=== PATIENT | female | born 1995 | race Two or more races ===

== ENCOUNTER 2021-07-30 03:28 | Inpatient (IN) | payer OTHER, SELFPAY ==
[2021-07-30] VITALS (11 sets, daily range): BP systolic 101–122; BP diastolic 67–74; PULSE 65–66; RESP 16–20; TEMP 36.8; O2SAT 97–98; BMI 20.5
[2021-07-30] MEDS: Haloperidol Lactate 5 MG/ML VIAL IM (05:45)
[2021-07-30] MEDS: LORazepam 2 MG/ML VIAL IM (05:45)
[2021-07-30] MEDS: diphenhydrAMINE HCL 50 MG/ML VIAL IM (05:45)
--- NOTE | 2021-07-30 06:12 | PC.NURSE ---
Patient observed wit disorganized thought process, loud, disruptive, psychotically agitated, attempted to exit unit two times, non-re--, provider notified/ordered Ativan 2 mg IM, Haldol 5 mg IM, and Benedryl 50 mg IM, administered as ordered at 0545, security support was used, patient is currently resting quietly in her bed, patient is 1:1 for safety, will continue to monitor.
[2021-07-30 06:29] LABS: COVID-19 Test Negative (Negative)
--- NOTE | 2021-07-30 08:36 | ED_ITS ---
HPI - General Adult General Chief complaint: General Medical Stated complaint: unable to sleep Time Seen by Provider: 07/30/21 05:41 Source: patient Mode of arrival: ambulatory Limitations: altered mental status (Violeta) History of Present Illness HPI narrative: 26-year-old female who was brought to the emergency department for evaluation of violeta. The patient states she has not been able to sleep in 3-4 days . The patient was manic and had very pressured speech. Prior to my evaluation, the patient began yelling at staff and became very demanding. It was clear that she was manic and she was brought to the psychiatric pod. She was not able to be redirected and calmed down. The patient was therefore given Haldol 5 mg IM, Ativan 2 mg IM and Benadryl 50 mg IM. Related Data Home Medications Medication Instructions Recorded Confirmed alprazolam 0.25 mg tablet 1 tab PO DAILY PRN 07/30/21 07/30/21 buspirone 10 mg tablet 1 tab PO Q12H 07/30/21 07/30/21 sertraline 50 mg tablet 1 tab PO DAILY 07/30/21 07/30/21 zolpidem 10 mg tablet 1 tab PO BEDTIME PRN 07/30/21 07/30/21 Allergies Allergy/AdvReac Type Severity Reaction Status Date / Time No Known Allergies Allergy Verified 07/30/21 05:40 Review of Systems Verdana 4l Review of Systems: Yes Unobtainable due to mental status Verdana 4d PMFSH Past Medical History [facility] Narrative: Unobtainable due to violeta Social History Social History Alcohol intake: never Patient Tobacco Use Status: Never used Tobacco Use of substances other than those prescribed or required for medical reasons: No Advance Directives: No Advance Directives Information Provided: No Patient : No Physical Exam Verdana 4l Vital Signs: Verdana 4d Verdana 4d Vital Signs: Verdana 4d Verdana 4Bd Last Vital Signs Verdana 4d Automation Controls Specialist New 4d Automation Controls Specialist New 4d Temp 98.3 F 07/30/21 03:35 Automation Controls Specialist New 4d Pulse 65 07/30/21 04:18 Automation Controls Specialist New 4d Resp 16 07/30/21 07:35 BP 101/67 07/30/21 04:27 Pulse Ox 98 07/30/21 04:18 BMI result Body Mass Index 20.5 Const: Other: Patient is extremely manic, she is not redirectable, she is very agitated, she was talking a loud voice and would not stay in her room. Orientation/consciousness: oriented to person HENMT: Head: Yes normal to inspection, Yes normocephalic and Yes atraumatic Ears: external ears normal General nose exam: Normal external nose present Face and sinus: Yes normal facial exam Mouth: Normal oral and palatal mucosa present Throat: Yes posterior oropharynx normal Eyes: General: appearance normal, both eyes and all related structures Pupils: Equal, round and reactive pupils present Neck: Neck: Yes normal visual inspection, Yes no lymphadenopathy, Yes trachea midline and Yes supple Chest: Chest palpation & inspection: normal inspection of the chest and normal palpation of entire chest wall Resp: Effort & Inspection: normal respiratory effort and able to speak in complete sentences Auscultation: clear to auscultation bilaterally Cardio: Rate: regular rate Rhythm: regular rhythm Heart sounds: S1 normal heart sound present, S2 normal heart sound present and no murmurs GI: Inspection: Yes normal to inspection Palpation (GI): Soft to palpation, nontender and no guarding Auscultation: normal bowel sounds : General: Yes no CVA tenderness Back/Spine/Pelvis: Back: no CVA tenderness Skin: General skin exam: no rashes or lesions noted Neuro: General: oriented to person Cranial nerves: Yes CN's II-XII intact bilaterally and Yes Equal, round and reactive pupils present Motor exam (neuro): 5/5 motor strength present throughout Extrem: General: Yes normal to inspection Psych: Appearance: grossly normal Speech and movement: Pressured speech present Affect: Other affect and mood findings present (Manic) Thought content: Normal thought content present Course Course Course Narrative: 26-year-old female who presents emergency department for evaluation insomnia with unable to sleep for 3-4 days, the patient was manic and needed to be treated with Haldol 5 mg IM, Ativan 2 mg IM and Benadryl 50 mg IM. The patient had a good response these medications and is now resting comfortably. I did order Haldol 5 mg every 6 hours as needed for agitation and Ativan 2 mg every 6 hours as needed for agitation or anxiety. Patient's medications were reconciled in ordered. Did order laboratory evaluation to include CBC, CMP, urine drug screen urinalysis, urine test, TSH, COVID-19 test. 0845: Physician observation started at 0845. Patient placed in physician observation because the patient needed more time for medication to work and to see and be evaluated for the need for psych admission. At the time observation was started the patient's vitals were stable, patient is sleeping, lungs clear to auscultation heart regular rate rhythm, abdomen soft and nontender neurologic exam is nonfocal. Medical Decision Making Lab Data Labs: Lab Results 07/30/21 Range/Units 06:07 COVID-19 (NARCISA) Negative (Negative) COVID-19 Clin Com See Note Discharge Plan Discharge Clinical Impression: Violeta, Insomnia Patient Disposition: Still a Patient Prescriptions: No Action alprazolam 0.25 mg tablet 1 tab PO DAILY PRN (Reason: Agitation) 0RF buspirone 10 mg tablet 1 tab PO Q12H 0RF zolpidem 10 mg tablet 1 tab PO BEDTIME PRN (Reason: Insomnia) 0RF sertraline 50 mg tablet 1 tab PO DAILY 0RF
--- NOTE | 2021-07-30 13:06 | PC.NURSE ---
Patient resting comfortably in bed no s/s of pain or distress. Will continue to monitor.
[2021-07-30 16:39] LABS: MANUAL DIFF FLAG NO
[2021-07-30 16:40] LABS: Basophils Percent Auto 0.5 % (0-2); Eosinophils Absolute Auto 0.1 X10*3/uL (0.0-0.4); Eosinophils Percent Auto 1.2 % (0-4); Hematocrit 33.4 % (37.0-47.0); Hemoglobin 11.5 g/dl (12.0-16.0); Imm Gran Abs Auto 0.01 X10*3/uL (0.00-0.03); Imm Gran Pct Auto 0.2 % (0.0-0.4); Lymphocytes Percent Auto 34.3 % (20-40); Mean Corpuscular HGB Conc 34.4 g/dl (31.0-35.0); Mean Corpuscular Hemoglobin 28.1 pg (27.0-33.0); Mean Corpuscular Volume 81.7 fL (80.0-98.0); Mean Platelet Volume 10.6 fL (9.4-12.3); Monocytes Absolute Auto 0.5 X10*3/uL (0.1-1.2); Monocytes Percent Auto 9.1 % (2-11); Neutrophils Absolute Auto 3.3 x10*3/uL (2.0-8.3); Neutrophils Percent Auto 54.7 % (45-73); Platelet Count 316 X10*3/uL (160-400); Red Blood Count 4.09 X10*6/uL (4.20-5.50); Red Cell Distribution Width 14.5 % (11.0-16.0)
[2021-07-30 17:01] LABS: Alanine Aminotransferase 13 U/L (0-31); Alkaline Phosphatase 53 U/L (39-117); Anion Gap 12 (12-20); Aspartate Amino Transferase 14 U/L (5-31); Bilirubin Total 0.7 mg/dL (0.0-1.0); Blood Urea Nitrogen 7 mg/dL (9-16); Calcium 9.2 mg/dL (8.4-10.2); Carbon Dioxide 24 mmol/L (22-29); Chloride 108 mmol/L (96-108); Creatinine Clr Calc Pharmacy 87.7; Estimated Glomerular Filt Rate > 60; Glucose Random 90 mg/dL (60-115); Lipase 14 U/L (8-78); Potassium 3.5 mmol/L (3.3-5.1); Sodium 140 mmol/L (135-145); Total Protein 6.6 g/dL (6.5-8.0)
[2021-07-30 17:09] LABS: Ethanol < 10 mg/dL
[2021-07-30 17:20] LABS: TSH reflex Free T4 1.74 uIU/mL (0.32-4.0)
--- NOTE | 2021-07-30 18:02 | PC.NURSE ---
Care team in to assess patient at this time.
--- NOTE | 2021-07-30 19:40 | PC.NURSE ---
PT woke up and came out of room to use the bathroom. PT was calm and cooperative when speaking to me. PT stated that she really wants to see her and children. I explained to the PT that the visitor policy has recently changed to one visitor per PT but we are not allowing visitors after 1999 in order for patients to rest. PT was agreeable to rules and excited about seeing her family in the morning. PT provided urine sample at staff's request.
[2021-07-30 19:47] LABS: Appearance Urine CLEAR; Color Urine YELLOW; Glucose Urine UA NEG (NEG); Leukocyte Esterase Urine TRACE (NEG); Nitrite Urine NEG (NEG); UACC Culture Trigger YES; Urine Blood NEG (NEG); Urine Ketones 5 MG/DL (NEG); Urine Protein NEG (NEG-TRACE)
[2021-07-30 19:51] LABS: UPreg QC Valid YES; Urine Pregnancy NEGATIVE (NEGATIVE)
[2021-07-30 19:53] LABS: Bacteria Urine 1+ /LPF; RBC Urine 0 /HPF (0); Squamous Epithelial Cell Urine 2+ /LPF
[2021-07-30 20:04] LABS: Barbiturates, Urine Not Detected (Not Detect); Benzodiazepines Screen Urine Not Detected (Not Detect); Cocaine Screen Urine Not Detected (Not Detect); Fentanyl, urine Not Detected (Not Detect); Opiate Screen Urine Not Detected (Not Detect); Phencyclidine Screen Urine Not Detected (Not Detect)
[2021-07-30] MEDS: busPIRone HCl 10 MG TABLET PO (20:06)
[2021-07-30 20:10] LABS: Amphetamine Screen Urine Not Detected (Not Detect); Cannabinoid Screen Urine POSITIVE (Not Detect)
[2021-07-31 01:28] VITALS: RESP 12
--- NOTE | 2021-07-31 04:46 | PC.NURSE ---
PT woke up and informed this RN that she is feeling really drowsy and depressed. PT stated, The medication (Buspar) is making me feel this way and I do not want to continue taking it.
[2021-07-31 07:44] VITALS: BP 111/65; PULSE 79; RESP 16; TEMP 37.1; O2SAT 99
[2021-07-31] MEDS: Sertraline HCL 50 MG TABLET PO (08:07)
[2021-07-31] MEDS: metroNIDAZOLE 500 MG TABLET PO ×2 (13:05→20:00)
--- NOTE | 2021-07-31 18:34 | PC.NURSE ---
Bag of snacks is now located behind nurses station. Comfort object: blanket was kept at bedside due to pt richard for safety and denying SI/HI/ Self harm tendencies.
[2021-07-31 19:46] VITALS: BP 114/61; PULSE 74; TEMP 36.8; O2SAT 100
[2021-07-31] MEDS: busPIRone HCl 10 MG TABLET PO (19:58)
[2021-07-31] MEDS: LORazepam 1 MG TABLET 2 MG PO (19:58)
[2021-07-31] MEDS: HaloperidoL 5 MG TABLET PO (19:59)
--- NOTE | 2021-08-01 05:07 | PC.NURSE ---
Patient slept through the night, out of room times one for bathroom use and back, no distress observed/reported, medication compliant, behavioral appropriate and cooperative, patient's disposition per care team is voluntary inpatient bed search, no update on bed search, VSS, will continue to monitor.
[2021-08-01 06:20] VITALS: BP 115/67; PULSE 94; RESP 17; TEMP 36.9; O2SAT 100
[2021-08-01] MEDS: metroNIDAZOLE 500 MG TABLET PO ×2 (07:52→21:16)
[2021-08-01] MEDS: Sertraline HCL 50 MG TABLET PO (07:52)
--- NOTE | 2021-08-01 08:15 | PC.NURSE ---
pt requested morning meds early, refused Buspar stated it makes her mind cloudy . pt pleasant, talked about her family with this travel writer. denies pain, accepted breakfast. no complaints. will continue to monitor.
--- NOTE | 2021-08-01 09:01 | PC.NURSE ---
pt's in to visit. brought book to study. security checked and cleared book. will continue to monitor.
--- NOTE | 2021-08-01 10:28 | PC.NURSE ---
Ghislaine meeting with pt at this time.
--- NOTE | 2021-08-01 12:40 | PC.NURSE ---
pt pending admission to M3, pt made aware by Ghislaine. will continue to monitor.
[2021-08-01 13:08] LABS: COVID-19 Test Negative (Negative); IDNOW Serial# 08D9AD1C
[2021-08-01 14:00] VITALS: BP 118/65; PULSE 87; RESP 18; O2SAT 99
[2021-08-01 18:38] VITALS: BP 109/55; PULSE 84; TEMP 37.2; O2SAT 99
[2021-08-01] MEDS: HaloperidoL 5 MG TABLET PO (21:16)
[2021-08-01] MEDS: LORazepam 1 MG TABLET 2 MG PO (21:32)
--- NOTE | 2021-08-01 22:50 | PC.ADMIT ---
Patient is a 26 year old female who presented to M3 from [facility] ED POD. Patient arrived to the unit in a wheelchair at 21:38. Patient signed into the unit on a CV and signed a 3 day notice shortly after arrival. Vital signs upon arrival were T: 98.2, RR: 15, HR: 68, BP: 117/63, O2: 100%. Patient was pleasant and cheerful during admission process. Patient was observed smiling and laughing through the meeting. Patient is alert and oriented x 4. Patient reported that prior to coming to the ED she had not slept in 5 days. So my called the ambulance and they brought me to [facility]. I did not like the way they were taking care of me there. My sister and her boyfriend brought me to [place]. When I got here I was already agitated and was just talking loudly. They gave me an injection in my thigh. That made me sleep for like 10 hours and I woke up feeling like myself again . In the ED patient received a B52 on 07/29/2021. Patient reported that about a month and a half ago experiencing sleeplessness for 5 days. Patient called her PCP and PCP gave patient zoloft, Xanax, Buspar, and Ambien. Patient reported i didn't like the way the Buspar made my brain fog, or how the Ambien made me forgetful . Patient denies anxiety and depression at this time. Patient denied SI/HI/AH/VH. Patient reported feeling safe on the unit. Patient stated some goals for discharge are to establish a psychiatrist and get the medications right . Patient stated appetite was poor priori to coming to ED, but is better since being in the hospital. Patient reported losing about 10 pounds from decreased appetite. Patient stated she would pick and feel full fast. Patient denies physical complaints at this time.
[2021-08-02 08:41] LABS: Cholesterol 122 mg/dL; HDL Cholesterol 48 mg/dL; LDL Cholesterol Calculated 66 mg/dl; Triglycerides 44 mg/dL
[2021-08-02 08:59] LABS: Estimated Average Glucose 88 mg/dL; Hemoglobin A1c % 4.7 %
[2021-08-02 09:28] VITALS: BP 120/67; PULSE 100; RESP 17; TEMP 36.8; O2SAT 100
[2021-08-02] MEDS: Sertraline HCL 50 MG TABLET PO (09:36)
[2021-08-02] MEDS: metroNIDAZOLE 500 MG TABLET PO ×2 (09:36→20:46)
--- NOTE | 2021-08-02 10:00 | P.HPPS_ITS ---
HPI Date of Service: 08/02/21 Chief Complaint: Bipolar Disorder, Violeta; Insomnia Sources of Information: patient interviewed, chart reviewed and crisis/core team assessment reviewed HPI Subjective Notes: 3 Day Narrative: Mrs. Douglass is a 26 year-old woman who initially presented to [facility] [place] due to complaints of not sleeping for several days, changes in mood. Pt apparently left [facility] [place] [place] AMA because she reported staff making racial comments. Pt was brought in by family to [facility] [place] ED on 07/30/2021. In the ED, pt presented as agitated, tried to elope twice from ED, requiring chemical restraint. In the ED, her utox was positive for THC. On the unit, pt presents as much calmer and organized. She reports that for the past 3-4 weeks she was not able to sleep but had significant amount of energy. She reports exercising excessively. She also reports feeling paranoid reporting that she thought someone was after her. She also reports thinking that God was going to come. She reports she has never had episode like this one. She denied VH/AH. She denies SI/HI. She reports hx of depression which was treated by PCP recently when she was started about 6 weeks ago on sertraline. She was also started on ambien and reports having difficulty remembering things with this medication. Past Psychiatric History: Inpatient: none prior Outpatient:none no prior medication trials No hx of suicide attempts. Medical Evaluation Reviewed: Yes CBC mostly unremarkable except for slightly low RBC, Hgb/Hct. CMP wnl. [facility] Family History: reports mother and brother with hx of increase energy/changes in mood thinks they have not properly been dx with psychiatric condition due to cultural resistance to mental health services. Social History: , has two children ages 2y/o and 6yo. currently working as enterprise resource analyst and going to graduate school for database analyst. Substance History: reports using THC for sleep last use more than 2 weeks. Trauma History: denies Diagnostics Vital Signs (24Hr): Vital Signs - 24 hr 08/01/21 18:38 08/02/21 09:28 Temperature 99 F 98.3 F Pulse Rate 84 100 Respiratory Rate 17 Blood Pressure 109/55 L 120/67 Pulse Oximetry 99 100 BMI result Body Mass Index 20.5 Labs Results: 07/30/21 16:33 07/30/21 16:33 Labs: Laboratory Results - last 48 hr 08/01/21 08/02/21 08/02/21 12:42 08:08 08:08 Estimat Average Glucose 88 Hemoglobin A1c % 4.7 Triglycerides 44 Cholesterol 122 LDL Cholesterol, Calc 66 HDL Cholesterol 48 COVID-19 (NARCISA) Negative COVID-19 Clin Com See Note Meds/Allergies Meds Home Medications Acetaminophen (Acetaminophen 325 Mg Tablet) 650 mg PO Q6H PRN PRN Reason: Headache/Pain Mild Scale (1-3) Al Hydroxide/Mg Hydroxide (Magnesium Hydrox/Alum Hydrox 30 Ml Oral.Susp) 30 ml PO Q6H PRN PRN Reason: Heartburn/Nausea Haloperidol (Haloperidol 5 Mg Tablet) 5 mg PO BEDTIME NOREEN Hydroxyzine HCl (Hydroxyzine Hcl 25 Mg Tablet) 25 mg PO BEDTIME PRN PRN Reason: Anxiety Lorazepam (Lorazepam 1 Mg Tablet) 1 mg PO BEDTIME NOREEN Magnesium Hydroxide (Milk Of Magnesia 30 Ml Oral.Susp) 30 ml PO DAILY PRN PRN Reason: Constipation Metronidazole (Metronidazole 500 Mg Tablet) 500 mg PO BID NOREEN Stop: 08/03/21 21:01 Last Admin: 08/02/21 09:36 Dose: 500 mg Documented by: Allergies Allergies Allergy/AdvReac Type Severity Reaction Status Date / Time No Known Allergies Allergy Unverified 08/01/21 07:26 [No Known Allergies*] Mental Status Exam Mental Status Exam Narrative: Appearance: casually groomed, good hygiene, in NAD Behavior: cooperative Speech: clear, normal rate/rhythm/volume, spontaneous TP: linear TC: no over delusional or psychosis noted. looking forward to be discharged soon and continue OP psych tx. Mood: okay Affect: congruent, non labile VH/AH: none SI: none HI: none Delusions: none Insight/judgment: fair x 2. Memory/cog: alert, oriented x 3. grossly intact to conversational testing. Assessment & Plan Assessment & Plan (1) Psychosis: Status: Acute Code(s): F29 - Unspecified psychosis not due to a substance or known physiological condition (2) Cannabis use disorder, mild, abuse: Status: Acute Code(s): F12.10 - Cannabis abuse, uncomplicated Plan Ms. Wong is a 26 year-old woman who was brought to [facility] [place] ED by family after pt had not slept for past 2-3 weeks, increased energy, excessively exercising, paranoid ideas that she was being followed and that God was coming soon. Pt received haldol while in ED with good effect. This is her first inpatient admission. This is also her first psychotic episode. Of note, pt had been started on sertraline 6 weeks ago by her PCP for depression. She was also started on ambien, which pt reports cause amnesia, which is a well known side effect of this medications. She also reports increase use of cannabis initially to help her sleep. In terms of differential diagnosis this could be one cannabis induced, but can also be sign of first manic episode of a Bipolar type 1 Disorder. We discussed risks, benefits and alternative treatment options. Pt agreed to continue low dose of haldol as she found this medication helpful with ativan for sleep. She signed a 3 day notice hoping to be discharged soon with follow up appointments. PLAN 1. Admit to M3, 3 day notice, 15 minutes checks for safety 2. continue haldol 5 mg po qhs and ativan 1mg po qhs. 3. d/c sertraline- pt can continue OP treatment to further clarify diagnosis. 4. Obtain collateral information 5. Aftercare planning. Reason for continued inpatient stay Substantial Risk for: inability to function
[2021-08-02] MEDS: Acetaminophen 325 MG TABLET 650 MG PO (18:33)
[2021-08-02] MEDS: HaloperidoL 5 MG TABLET PO (20:45)
[2021-08-02] MEDS: LORazepam 1 MG TABLET PO (20:46)
[2021-08-02 20:48] VITALS: BP 116/68; PULSE 72; TEMP 36.8; O2SAT 98
[2021-08-03 07:45] VITALS: BP 122/64; PULSE 84; RESP 16; TEMP 36.7; O2SAT 98
[2021-08-03] MEDS: metroNIDAZOLE 500 MG TABLET PO (08:14)
--- NOTE | 2021-08-03 11:14 | PC.NURSE ---
Willow is alert, fully oriented, pleasant and cooperative with discharge process. She denies ideation, plan or intent to harm self or others. She denies auditory or visual hallucinations. She reports sleep and appetite are good. She reports her mood is improved since admission. She denies current anxiety. She denies physical complaint.
[2021-08-03 19:51] LABS: Vitamin B12 324 pg/mL (200-900)
--- NOTE | 2021-10-03 11:23 | PM.PSYDC ---
DS: Providers Provider Date of Service: 08/03/21 Date of admission: 08/01/21 22:02 Primary care physician: Unknown Physician DS: Medications Discharge Medications Home Medications: Previous Rx's Medication Instructions Recorded haloperidol 5 mg tablet 5 mg PO BEDTIME #15 tab 08/03/21 lorazepam 1 mg tablet 1 mg PO BEDTIME #15 tab 08/03/21 Mental Status Exam Mental Status Exam Narrative: Appearance: casually groomed, good hygiene, in NAD Behavior: cooperative Speech: clear, normal rate/rhythm/volume, spontaneous TP: linear TC: no over delusional or psychosis noted. looking forward to be discharged soon and continue OP psych tx. Mood: okay Affect: congruent, non labile VH/AH: none SI: none HI: none Delusions: none Insight/judgment: fair x 2. Memory/cog: alert, oriented x 3. grossly intact to conversational testing. Data Data Completed and Pending Completed studies during hospitalization [Text1]: 07/30/21 19:48 Urine clean catch - Clean Catch Midstream Urine Culture - Final No growth. DS: Summary Hospital Course Hospital Course: Mrs. Douglass is a 26 year-old woman who initially presented to [facility] [facility] [place] due to complaints of not sleeping for several days, changes in mood. Pt apparently left [place] [facility] [place] because she reported staff making racial comments. Pt was brought in by family [place] [facility] [place]. In the ED, pt presented as agitated, tried to elope twice from ED, requiring chemical restraint. In the ED, her utox was positive for THC. On the unit, pt presents as much calmer and organized. She reports that for the past 3-4 weeks she was not able to sleep but had significant amount of energy. She reports exercising excessively. She also reports feeling paranoid reporting that she thought someone was after her. She also reports thinking that God was going to come. She reports she has never had episode like this one. She denied VH/AH. She denies SI/HI. She reports hx of depression which was treated by PCP recently when she was started about 6 weeks ago on sertraline. She was also started on ambien and reports having difficulty remembering things with this medication.? Past Psychiatric History: Inpatient: none prior Outpatient:none no prior medication trials No hx of suicide attempts. Medical Evaluation Reviewed: Yes CBC mostly unremarkable except for slightly low RBC, Hgb/Hct. CMP wnl. HOSPITAL COURSE On the unit, Ms. Douglass was admitted on a CV and 3 day notice. She had been in ED taking haldol 5mg po qhs and ativan. She presented with bright but non labile affect. Her thought process was linear. She did not appear internally preoccupied. She denied SI/HI. After discussing risks, benefits and alternative treatment options, she agreed to continue haldol and be referred to OP psychiatric treatment. W Collateral information from her family who reports pt appears in much improved condition and denied any safety concerns at time of discharge. Family agreed to take pt back home and in agreement to continue OP psychiatric treatment. Pt was visible in the unit, attended assigned groups. She did not show any signs of EPS with haldol. Her sleep had improved. There were no incidences of disruptive behaviors nor use of restraints. Time spent discussing smoking cessation with patient: 3 to 10 minutes Status at Discharge Cognitive/behavioral status at discharge: Pt with bright, but non labile affect. No SI/HI. No AH/VH. Thought process is linear. Increase insight as to need for OP psych treatment. Future oriented. No signs of aggression towards self or others. Functional status at discharge: independent ambulation Time Spent with Patient Time attestation: Total time spent providing and/or coordinating discharge services: Discharge Plan Discharge Patient Disposition: Home, Self-Care Discharge Diagnosis: psychosis nos, r/o bipolar disorder versus cannabis induced psychosis Referrals: Dr. Angie Uriostegui (psychiatrist) [Other] - 08/04/21 2:00 pm (Appointment is in office) Janis Watt (therapist) [Other] (Follow up with your therapist at your regular scheduled time) [facility] [Provider Group] - 08/04/21 4:00 pm (Provider Elsie Vigil) Discharge Medications: New haloperidol 5 mg Tablet 5 mg PO BEDTIME Qty: 15 0RF lorazepam 1 mg Tablet 1 mg PO BEDTIME Qty: 15 0RF Discontinued alprazolam 0.25 mg tablet 1 tab PO DAILY PRN (Reason: Agitation) 0RF buspirone 10 mg tablet 1 tab PO Q12H 0RF zolpidem 10 mg tablet 1 tab PO BEDTIME PRN (Reason: Insomnia) 0RF sertraline 50 mg tablet 1 tab PO DAILY 0RF buspirone 5 mg tablet 1 tab PO DAILY PRN (Reason: Muscle Spasm) 0RF Discharge Orders: Discharge Order (Routine); Ordered 08/03/21 Ordered By: Porsha Reynolds Diet: advance to usual diet Activity on Discharge: As tolerated Stand Alone Forms: Patient Portal Discharge page, Community Support Care Plan Goals: maintain mood NO SI/HI No signs of psychosis or delusional content Health Concerns: follow up with PCP for regular care Plan of Treatment: take medications as prescribed go to nearest ED or call 911 in event of emergency. Assessment: pt with bright, non labile affect. no signs of psychosis or delusional content reported. No SI/HI. No signs of aggression towards self or others. Future oriented in agreement to continue OP tx. Discharge Date/Time: 08/03/21 11:32
== END 2021-08-03 11:32 | disposition home or self-care (01) | DRG 885 ==
LOC: HO.ED 08-01 12:32 → HO.PADLT16 08-01 22:09
PROVIDERS: Clinical Nurse Specialist Psychiatric/Mental Health, Adult; Emergency Medicine; Admitting Provider Psychiatry & Neurology Psychiatry; Emergency Provider Emergency Medicine Emergency Medical Services; Visit Provider Social Worker
DX: F31.9 Bipolar disorder, unspecified (principal); F29 Unspecified psychosis not due to a substance or known physiological condition; G47.00 Insomnia, unspecified; F12.10 Cannabis abuse, uncomplicated; Z20.822 Contact with and (suspected) exposure to COVID-19; Z79.899 Other long term (current) drug therapy
CPT/HCPCS: 36415; 80053; 80061; 80307; 81001; 81025; 82077; 82607; 82746; 83036; 83690; 84443; 85025; 87086; 87635; 96372; 99285; J1200; J2060

== ENCOUNTER 2023-08-12 11:59 | Emergency (ER) | payer MEDICAID, SELFPAY ==
--- NOTE | 2023-08-12 13:04 | ED.EAR ---
HPI - Ear Problem General Chief complaint: Ear Problems Stated complaint: Ear ache Time Seen by Provider: 08/12/23 13:15 Source: patient Mode of arrival: ambulatory Limitations: no limitations History of Present Illness HPI Narrative: 28 year old female with pmhx significant for psychosis and cannabis use disorder, presents to the ED today for evaluation of left ear pain x2 weeks upon returning from [place]. Reports swimming in the ocean while in [place]. Left ear pain worsening during the flight back to [place]. States that she has not been able to sleep on the left side due to the pain. She is not taking any OTC medications for this at home. Denies injury/trauma to the ear. Denies discharge from the ear or hearing changes. Denies fever, chills, nausea or vomiting. Related Data Previous Rx's Medication Instructions Recorded haloperidol 5 mg tablet 5 mg PO BEDTIME #15 tabs 08/03/21 lorazepam 1 mg tablet 1 mg PO BEDTIME #15 tabs 08/03/21 amoxicillin 875 mg-potassium 1 tab PO BID 7 days #14 tabs 08/12/23 clavulanate 125 mg tablet ofloxacin 0.3 % ear drops 10 drp otic (ear) left DAILY 7 08/12/23 days #10 mL Allergies Allergy/AdvReac Type Severity Reaction Status Date / Time No Known Allergies Allergy Verified 08/12/23 13:05 [No Known Allergies*] Review of Systems Review of Systems: Constitutional: No fever, chills, fatigue, night sweats, weight changes ENT/Mouth: No hearing loss, nasal congestion, sinus pain, rhinorrhea, sore throat, +left ear pain Eyes: No eye pain, swelling, redness, vision changes, discharge Cardio: No chest pain, palpitations, BACA, orthopnea, peripheral edema Pulm: No SOB, cough, sputum, wheezing, dyspnea, hemoptysis GI: No nausea, vomiting, hematemesis, abdominal pain, diarrhea, constipation, hematochezia, melena : No irregular bleeding, dysuria, frequency, urgency, hesitancy, hematuria, flank pain, urinary flow changes, urinary incontinence or retention MSK: No back pain, neck pain, joint pain, myalgias Skin: No lesions, rashes Neuro: No weakness, numbness, paresthesias, LOC, dizziness, headache All other systems reviewed and are negative. Yes all other systems are reviewed and are negative [facility] Past Medical History Attestation statement: The following information was validated with the patient. Source: old records reviewed and nursing notes reviewed Social History Social History Household Members: Spouse and Children Housing: House Do you presently have visiting nurse or other home services: No Alcohol intake: never Patient Tobacco Use Status: Never used Tobacco Advance Directives: No Advance Directives Information Provided: No service: No Sexual orientation: Straight/Heterosexual Physical Exam Vital Signs: Vital Signs: Last Vital Signs Temp 98.0 F 08/12/23 13:05 Pulse 66 08/12/23 13:05 Resp 14 08/12/23 13:05 BP 128/76 08/12/23 13:05 Pulse Ox 100 08/12/23 13:05 O2 Del Method Room Air 08/12/23 13:05 BMI result Body Mass Index 29.0 Vital signs stable afebrile Const: General: cooperative, healthy appearing, comfortable and no acute distress Orientation/consciousness: patient oriented x3 Limitations: no limitations HEENT: Other: + no pain on manipulation of left pinna or tragus. No mastoid tenderness. Left EAC erythematous without edema. TM erythematous and bulging without perforation. + no pain on manipulation of right pinna or tragus. No mastoid tenderness. Right EAC without erythema or edema. TM intact without erythema or bulging. Head: Yes normal to inspection, Yes normocephalic and Yes atraumatic Ears: hearing grossly normal bilaterally Face and sinus: Yes normal facial exam Neck: Neck: Yes normal visual inspection and Yes no lymphadenopathy Resp: Effort & Inspection: normal respiratory effort Auscultation: clear to auscultation bilaterally Cardio: Rate: regular rate Rhythm: regular rhythm Skin: General skin exam: no rashes or lesions noted Neuro: General: patient oriented x3 Course Course Course Narrative: 1316-- patient's physical exam is consistent with otitis media of the left ear and will be treated with Augmentin. the left EAC is erythematous so will send ofloxacin drops as well. Discussed importance of completing antibiotics with patient. She has remained stable through visit today. All questions answered at this time. Discussed worrisome signs and symptoms of when to return to the ED. Patient is agreeable with disposition and stable for discharge. Medical Decision Making Medical Decision Making [facility] Narrative: 28 year old female with pmhx significant for psychosis and cannabis use disorder, presents to the ED today for evaluation of left ear pain x2 weeks upon returning from [place]. Vital signs are stable. Patient is nontoxic-appearing and in no acute distress. On exam, there is no pain on manipulation of the left pinna or tragus. No mastoid tenderness. Left EAC erythematous, no edema. TM erythematous and bulging. Intact. Clinical concern for otitis media versus otitis externa. No concern for mastoiditis, malignant otitis externa, TM perforation. Will discharge home with antibiotics. Differential Diagnosis Differential Diagnoses: The differential diagnosis associated with the presentation includes As above. Admission/Observation Not indicated. External Record Review External record reviewed: Inpatient record Prescription Management I considered prescription management with: Pain Medication and Antibiotic (Ofloxacin, Augmentin) Social Determinants Patient?s care significantly limited by Social Determinants of Health including: Other Social Determinant of Health Discharge Plan Discharge Clinical Impression: Acute otitis media Qualifiers: Laterality: left Patient Disposition: Home, Self-Care Instructions: How to Use Ear Drops (ED), Ear Infection (ED) Additional Instructions: You were evaluated in the ED today for left ear pain. You have an infection of the middle left ear. Augmentin is antibiotic that has been sent to your pharmacy. Take this twice daily for the next 7 days. Do not finish his antibiotics early or skip any doses as this may cause infection to worsen or return. Ofloxacin ear drops have been sent to your pharmacy. Instill 1 drop into affected ear daily for the next 7 days. You may also take Tylenol and ibuprofen as needed for pain/discomfort. If symptoms persist or worsen please return to the ED. The case of an emergency call 911. On amoxicillin-clavulanate, softer bowel movements are to be expected. Call your provider if you move your bowels more than 4 times a day, your bowel movements are almost all liquid, or you get a rash.? Prescriptions: New amoxicillin-pot clavulanate 875-125 mg tablet 1 tab PO BID 7 Days Qty: 14 0RF ofloxacin 0.3 % drops 10 drp otic (ear) left DAILY 7 Days Qty: 10 0RF No Action haloperidol 5 mg Tablet 5 mg PO BEDTIME Qty: 15 0RF lorazepam 1 mg Tablet 1 mg PO BEDTIME Qty: 15 0RF Stand Alone Forms: Work/School Release Interventions: ED Discharge Assessment Last Done: 08/12/23 13:44 Discharge Date/Time: 08/12/23 13:45
[2023-08-12 13:05] VITALS: BP 128/76; PULSE 66; RESP 14; TEMP 36.7; O2SAT 100; BMI 29.0
== END 2023-08-12 13:45 | disposition home or self-care (01) ==
PROVIDERS: Emergency Provider Emergency Medicine; PCP Internal Medicine
DX: H66.92 Otitis media, unspecified, left ear (principal); H92.02 Otalgia, left ear; Z79.899 Other long term (current) drug therapy
CPT/HCPCS: 99282; 99283

== ENCOUNTER 2025-05-30 16:31 | Emergency (ER) | payer OTHER, SELFPAY ==
[2025-05-30 16:37] VITALS: BP 143/79; PULSE 83; RESP 18; TEMP 36.1; O2SAT 99; BMI 29.2
--- NOTE | 2025-05-30 16:37 | ED.GENADULT ---
HPI - General Adult General Chief complaint: Nausea/Vomiting/Diarrhea Stated complaint: Nausea Vomiting Diarrhea Time Seen by Provider: 05/30/25 19:12 History of Present Illness HPI narrative: Patient is a 30-year-old female presents today with having headache that is enough frontal area. Dull associated with nausea. Associated worsening with light. Symptom ongoing for about 24 hours. There is no focal weakness. There is no neck pain. There is no fever. There is no rash. Patient is from home. Has a history of migraine in the past. No chest pain or diaphoresis no focal weakness. No head injury. Patient from home. Headache is made worse with light. Made worse with noise. Related Data Previous Rx's ?Medication ?Instructions ?Recorded haloperidol 5 mg tablet 5 mg PO BEDTIME #15 tabs 08/03/21 lorazepam 1 mg tablet 1 mg PO BEDTIME #15 tabs 08/03/21 amoxicillin 875 mg-potassium 1 tab PO BID 7 days #14 tabs 08/12/23 clavulanate 125 mg tablet ofloxacin 0.3 % ear drops 10 drp otic (ear) left DAILY 7 08/12/23 days #10 mL ibuprofen 400 mg tablet 400 mg PO Q6H PRN pain #20 tabs 05/30/25 ondansetron 4 mg disintegrating 4 mg PO TID PRN nausea and 05/30/25 tablet vomiting 5 days #10 tabs Allergies Allergy/AdvReac Type Severity Reaction Status Date / Time No Known Allergies (No Known Allergy Verified 05/30/25 16:38 Allergies*) Review of Systems Review of Systems: Positive frontal headache Yes all other systems are reviewed and are negative PMFSH Past Medical History Attestation statement: The following information was validated with the patient. Social History Social History Household Members: Spouse and Children Housing: House Do you presently have visiting nurse or other home services: No Alcohol intake: never Patient Tobacco Use Status: Never used Tobacco Smoked in Last 30 Days: No Use of substances other than those prescribed or required for medical reasons: No Advance Directives: No Advance Directives Information Provided: No Do you have a plan to hurt others: No Plan Patient : No service: No Sexual orientation: Straight/Heterosexual Physical Exam ED Exam Exam: Appearance: Alert. Oriented X3. No acute distress. Eyes: Pupils equal, round and reactive to light. ENT: Pharynx normal. Neck: Normal inspection. Neck supple. No lymph nodes noted. No crepitus CVS: Normal heart rate and rhythm. Pulses normal. Normal S1 and S2 Respiratory: No respiratory distress. Breath sounds normal. No Wheezing. No rales Abdomen: Soft and nontender. No rigidity. No distention. good BS x4 Skin: Skin warm and dry. Normal skin color. Normal skin turgor. Extremities: No lower extremity edema. Neurovascular intact to all extremities. No Lacerations. No Rash Neuro: Oriented X 3. No motor deficit. No sensory deficit. Moving all extermities. No slurred speech Vital Signs: Vital Signs - 24 hr 05/30/25 16:37 05/30/25 19:08 05/30/25 20:23 Temperature 97 F 98.4 F 97.8 F Pulse Rate 83 70 75 Respiratory Rate 18 16 16 Blood Pressure 143/79 H 103/61 123/76 Pulse Oximetry 99 100 99 Oxygen Delivery Method Room Air Room Air Room Air 05/30/25 22:15 Temperature 98.1 F Pulse Rate 61 Respiratory Rate 16 Blood Pressure 117/74 Pulse Oximetry 100 Oxygen Delivery Method Room Air BMI result Body Mass Index 29.2 Course Course Course Narrative: This is a Rapid Medical Examination (RME) performed by Willa Richardson PA-C in triage. Full HPI, ROS, assessment and treatment plan per primary provider in the Main ED. Hx: 30 yo F here for eval of nausea, vomiting, headache, photophobia x yesterday. no hx migraines. reports 5lb weight loss this week. Plan: labs, UA, viral swabs Medications Administered Discontinued Medications Generic Name Dose Route Start Last Admin Trade Name Freq PRN Reason Stop Dose Admin Diphenhydramine HCl 50 mg 05/30/25 19:59 05/30/25 20:31 Diphenhydramine Hcl 50 Mg/Ml Vial IVPUSH 05/30/25 20:00 50 mg ONCE ONE Administration Sodium Chloride 1,000 mls @ 999 mls/hr 05/30/25 20:00 05/30/25 20:31 Ns IV 05/30/25 21:00 999 mls/hr .Q1H1M NOREEN Administration Sodium Chloride 1,000 mls @ 999 mls/hr 05/30/25 20:00 05/30/25 20:32 Ns IV 05/30/25 21:00 999 mls/hr .Q1H1M NOREEN Administration Ketorolac Tromethamine 15 mg 05/30/25 19:58 05/30/25 20:31 Ketorolac Tromethamine 15 Mg/Ml Vial IVPUSH 05/30/25 19:59 15 mg ONCE ONE Administration Metoclopramide HCl 10 mg 05/30/25 19:58 05/30/25 20:31 Metoclopramide Hcl 10 Mg/2 Ml Vial IVPUSH 05/30/25 19:59 10 mg ONCE ONE Administration Medical Decision Making Medical Decision Making [facility] Narrative: Patient well-appearing no acute distress. Neurologically intact. Blood pressure is 143/79 now. Patient is given a treatment for migraine including Reglan Benadryl Toradol with good relief of symptoms now patient can have the lights open without any issue can talk without any issues patient states the headache has at least have gone. Patient's COVID flu RSV were all negative. Urine is negative for infection there is no signs of UTI. test is negative there is no related issues. White count is normal electrolytes normal. Will discharge patient home repeat exam neurologically intact. Differential Diagnosis Differential Diagnoses: The differential diagnosis associated with the presentation includes Migraine versus bleed versus meningitis Admission/Observation Consideration of admission/observation: Escalation of care including admission/observation considered Lab Data [facility] Lab Attestation statement: I reviewed the patient's lab results. 05/30/25 16:46 05/30/25 16:46 Labs: Lab Results 05/30/25 05/30/25 Range/Units 16:46 19:18 WBC 9.1 (4.8-10.8) X10*3/uL RBC 4.74 (4.20-5.50) X10*6/uL Hgb 14.5 D (12.0-16.0) g/dl Hct 40.1 D (37.0-47.0) % MCV 84.6 (80.0-98.0) fL MCH 30.6 (27.0-33.0) pg MCHC 36.2 H (31.0-35.0) g/dl RDW 11.9 (11.0-16.0) % Plt Count 424 H D (160-400) X10*3/uL MPV 9.7 (9.4-12.3) fL Immature Gran % (Auto) 0.3 (0.0-0.4) % Neut % (Auto) 79.9 H (45-73) % Lymph % (Auto) 14.3 L (20-40) % [place] % (Auto) 4.1 (2-11) % Eos % (Auto) 0.9 (0-4) % Baso % (Auto) 0.5 (0-2) % Lymph # (Auto) 1.3 (1.2-4.9) X10*3/uL [place] # (Auto) 0.4 (0.1-1.2) X10*3/uL Eos # (Auto) 0.1 (0.0-0.4) X10*3/uL Baso # (Auto) 0.1 (0.0-0.2) X10*3/uL Abs Immat Gran (auto) 0.03 (0.00-0.03) X10*3/uL Absolute Neuts (auto) 7.3 (2.0-8.3) x10*3/uL Absolute Nucleated RBC 0.000 (0.0-0.012) X10*3/uL Nucleated RBC % (auto) 0.0 (0.0-0.2) /100WBC Sodium 142 (135-145) mmol/L Potassium 3.7 (3.3-5.1) mmol/L Chloride 108 (96-108) mmol/L Carbon Dioxide 23 (22-29) mmol/L Anion Gap 15 (12-20) BUN 11 (9-16) mg/dL Creatinine 0.92 (0.5-1.4) mg/dL Estim Creat Clear Calc 88.2 Estimated GFR > 60 Random Glucose 96 (60-115) mg/dL Calcium 9.8 D (8.4-10.2) mg/dL Magnesium 2.1 (1.6-2.6) mg/dL Total Bilirubin 0.5 (0.0-1.0) mg/dL AST 18 (5-31) U/L ALT 18 (0-31) U/L Alkaline Phosphatase 111 (39-117) U/L Total Protein 8.3 H (6.5-8.0) g/dL Albumin 5.2 H (3.5-5.0) g/dL Lipase 22 (8-78) U/L Beta HCG, Quant < 2 mIU/mL Urine Color Dark Yellow Urine Appearance Clear Urine pH 5.5 (5.0-9.0) Ur Specific [place] >= 1.030 H (1.005-1.025) Urine Protein 30 (1+) H (Neg-Trace) mg/dL Urine Glucose (UA) Negative (Negative) mg/dL Urine Ketones >=160 (Negative) mg/dL Urine Blood Trace H (Negative) Urine Nitrite Negative (Negative) Ur Leukocyte Esterase Negative (Negative) Urine RBC 0-2 (0-2) /HPF Urine WBC 0-5 (0-5) /HPF Ur Squamous Epith Cells 11-20 (0-2) /HPF Urine Bacteria 1+ (None Seen) Hyaline Casts 0-2 (0-2) /LPF Influenza Type A (PCR) NEGATIVE (Negative) Influenza Type B (PCR) NEGATIVE (Negative) RSV RNA Qual (PCR) NEGATIVE (Negative) SARS-CoV-2 RNA (RT-PCR) NEGATIVE (Negative) Independent Historian Clinical information obtained from an independent historian. History obtained from or confirmed by: Spouse Chronic Conditions History of migraine Discharge Plan Discharge Clinical Impression: Migraine Patient Disposition: Home, Self-Care Instructions: Migraine Headache (ED) Prescriptions: New ibuprofen 400 mg tablet 400 mg PO Q6H PRN (Reason: pain) Qty: 20 0RF ondansetron 4 mg tablet,disintegrating 4 mg PO TID PRN (Reason: nausea and vomiting) 5 Days Qty: 10 0RF No Action haloperidol 5 mg Tablet 5 mg PO BEDTIME Qty: 15 0RF lorazepam 1 mg Tablet 1 mg PO BEDTIME Qty: 15 0RF amoxicillin-pot clavulanate 875-125 mg tablet 1 tab PO BID 7 Days Qty: 14 0RF ofloxacin 0.3 % drops 10 drp otic (ear) left DAILY 7 Days Qty: 10 0RF Referrals: Jeanna Neri DO [Primary Care Provider, Medical] - 06/03/25 Print Language: [place]
[2025-05-30 16:49] LABS: MANUAL DIFF FLAG NO
[2025-05-30 16:51] LABS: Hematocrit 40.1 % (37.0-47.0); Hemoglobin 14.5 g/dl (12.0-16.0); Imm Gran Abs Auto 0.03 X10*3/uL (0.00-0.03); Imm Gran Pct Auto 0.3 % (0.0-0.4); Lymphocytes Absolute Auto 1.3 X10*3/uL (1.2-4.9); Mean Corpuscular HGB Conc 36.2 g/dl (31.0-35.0); Mean Corpuscular Hemoglobin 30.6 pg (27.0-33.0); Mean Corpuscular Volume 84.6 fL (80.0-98.0); NRBC Abs Auto 0.000 X10*3/uL (0.0-0.012); NRBC Pct Auto 0.0 /100WBC (0.0-0.2); Platelet Count 424 X10*3/uL (160-400); Red Blood Count 4.74 X10*6/uL (4.20-5.50); White Blood Count 9.1 X10*3/uL (4.8-10.8)
[2025-05-30 17:13] LABS: Alanine Aminotransferase 18 U/L (0-31); Albumin Level 5.2 g/dL (3.5-5.0); Alkaline Phosphatase 111 U/L (39-117); Anion Gap 15 (12-20); Aspartate Amino Transferase 18 U/L (5-31); Blood Urea Nitrogen 11 mg/dL (9-16); Calcium 9.8 mg/dL (8.4-10.2); Carbon Dioxide 23 mmol/L (22-29); Chloride 108 mmol/L (96-108); Creatinine Clr Calc Pharmacy 88.2; Estimated Glomerular Filt Rate > 60; Lipase 22 U/L (8-78); Magnesium 2.1 mg/dL (1.6-2.6); Potassium 3.7 mmol/L (3.3-5.1); Sodium 142 mmol/L (135-145); Total Protein 8.3 g/dL (6.5-8.0)
[2025-05-30 17:26] LABS: Resp Syncy Virus RNA Qual PCR NEGATIVE (Negative); SARS COV2 PCR INHOUSE NEGATIVE (Negative)
[2025-05-30 19:08] VITALS: BP 103/61; PULSE 70; RESP 16; TEMP 36.9; O2SAT 100
[2025-05-30 19:23] LABS: Appearance Urine Clear; Glucose Urine UA Negative (Negative); PH 5.5 (5.0-9.0); Specific Gravity - Urine >= 1.030 (1.005-1.025); UMIC TRIGGER UACC YES
--- OUTSIDE RECORDS SUMMARY | 2025-05-30 19:33 | XMS_ITS | Encounter Summary ---
Author Organization [facility] Address [address] [place] [address] Care Team Providers Care Deputy Director Name Role Phone Physician, Pcp Unknown Primary Care Provider Edith vailable Encounter Details Date Type Department Care Team (Latest Contact Info) Description 03/24/2025 Lab Requisition [facility] [address] [place] [address] Kamran Steel MD [address] [phone] Acute vaginitis; Encounter for screening for infections with a predominantly sexual mode of transmission Social History Tobacco Use Types Packs/Day Years Used Date Smoking Tobacco: Never Assessed Comments Unknown Sex and Gender Information Value Date Recorded Sex Assigned at Not on file Legal Sex Female 9:33 AM EDT Gender Identity Not on file Sexual Orientation Not on file documented as of this encounter Plan of Treatment Not on file documented as of this encounter Procedures Procedure Name Priority Date/Time Associated Diagnosis Comments CHLAMYDIA TRACHOMATIS AND NEISSERIA GONORRHOEAE PCR Routine 03/24/2025 12:00 AM EDT Acute vaginitis Encounter for screening for infections with a predominantly sexual mode of transmission documented in this encounter Results * Chlamydia trachomatis and Neisseria gonorrhoeae molecular study (03/24/2025 12:00 AM EDT) Neisseria gonorrhoeae PCR Negative Negative LAB MOLECULAR DIAGNOSTICS METHOD 03/26/2025 10:10 AM [facility] Chlamydia trachomatis PCR Negative Negative LAB MOLECULAR DIAGNOSTICS METHOD 03/26/2025 10:10 AM [facility] Swab Cervix uteri structure / Unknown 03/24/2025 03/25/2025 9:55 AM EDT us Kamran Steel MD LAB MICROBIOLOGY - GENERAL ORD ERABLES Final Result [facility] [address] [place] [address], documented in this encounter Visit Diagnoses Diagnosis Acute vaginitis Unspecified vaginitis and vulvovaginitis Encounter for screening for infections with a predominantly sexual mode of transmission documented in this encounter Care Teams Deputy Director Relationship Specialty Start Date End Date Physician, Pcp Unknown PCP - General 05/16/24 documented as of this encounter
--- OUTSIDE RECORDS SUMMARY | 2025-05-30 19:33 | XMS_ITS | Clinical Summary ---
Author Organization [facility] [address] [facility] Address [address] [place] [address] Phone Care Team Providers Care Hoist Cylinder Loader Name Role Phone Physician, Pcp Unknown Primary Care Provider Edith vailable Encounters Date Type Department Care Team Description 03/24/[address] [facility] [address] [facility] [place] [phone] Kamran Steel MD Acute vaginitis; Encounter for screening for infections with a predominantly sexual mode of transmission from Last 3 Months Social History Tobacco Use Types Packs/Day Years Used Date Smoking Tobacco: Never Assessed Comments Unknown Sex and Gender Information Value Date Recorded Sex Assigned at Not on file Legal Sex Female 9:33 AM EDT Gender Identity Not on file Sexual Orientation Not on file Plan of Treatment Health Maintenance Due Date Last Done Comments Cervical Cancer Screening: Pap Smear 2014 HPV Vaccines (1 - 3-dose SCDM series) 01/23/2020 HIV Screening 04/12/2024 Hepatitis C Screening 04/12/2024 Social Influencers of Health Screening 04/12/2024 Depression Screening 06/25/2024 COVID-19 Vaccine ( season) 2025 07/23/2021 Influenza Vaccine (#1) 2025 , 03/24/2019, 05/07/2017, Additional history exists DTaP,Tdap,and Td Vaccines (3 - Td or Tdap) 02/10/2029 02/10/2019, 01/01/2015 RSV Immunization Adult Patients (1 - 1-dose 75+ series) 01/23/2068 Hepatitis B Vaccines Completed 1993, 1993, 1993 MMR Vaccines Completed 01/29/1997, 01/31/1996 Hepatitis A Vaccines Aged Out 01/16/2018 No long er eligible based on patient's age to complete this topic HIB Vaccines Aged Out No longer eligi ble based on patient's age to complete this topic IPV Vaccines Aged Out No longer eligi ble based on patient's age to complete this topic Meningococcal ACWY Vaccine Aged Out N o longer eligible based on patient's age to complete this topic Meningococcal B Vaccine Aged Out No l onger eligible based on patient's age to complete this topic Pneumococcal Vaccine: Pediatrics (0 to 5 Years) and At-Risk Patients (6 to 49 Years) Aged Out No longer eligible based on patient's age to complete this topic RSV Immunization Patients Under 20 months Aged Out No longer eligible based on patient's age to complete this topic Varicella Vaccines Aged Out No longer eligible based on patient's age to complete this topic Procedures Procedure Name Priority Date/Time Associated Diagnosis Comments CHLAMYDIA TRACHOMATIS AND NEISSERIA GONORRHOEAE PCR Routine 03/24/2025 12:00 AM EDT Acute vaginitis Encounter for screening for infections with a predominantly sexual mode of transmission from Last 3 Months Results * Chlamydia trachomatis and Neisseria gonorrhoeae molecular study (03/24/2025 12:00 AM EDT) Neisseria gonorrhoeae PCR Negative Negative LAB MOLECULAR DIAGNOSTICS METHOD 03/26/2025 10:10 AM EDT [facility] Chlamydia trachomatis PCR Negative Negative LAB MOLECULAR DIAGNOSTICS METHOD 03/26/2025 10:10 AM EDT [facility] Swab Cervix uteri structure / Unknown 03/24/2025 03/25/2025 9:55 AM EDT us Kamran Steel MD LAB MICROBIOLOGY - GENERAL ORD ERABLES Final Result [facility] [address] [place] [address], [place] [phone] from Last 3 Months Insurance [facility] [place] [address] Care Teams Hoist Cylinder Loader Relationship Specialty Start Date End Date Physician, Pcp Unknown PCP - General 05/16/24
[2025-05-30 20:23] VITALS: BP 123/76; PULSE 75; RESP 16; TEMP 36.6; O2SAT 99
[2025-05-30 22:15] VITALS: BP 117/74; PULSE 61; RESP 16; TEMP 36.7; O2SAT 100
[2025-05-30 23:36] VITALS: BP 117/74; PULSE 61; RESP 16; TEMP 36.7; O2SAT 100
== END 2025-05-30 23:37 | disposition home or self-care (01) ==
PROVIDERS: Physician Assistant Medical; Emergency Provider Emergency Medicine Emergency Medical Services; PCP Internal Medicine
DX: G43.909 Migraine, unspecified, not intractable, without status migrainosus (principal); R11.2 Nausea with vomiting, unspecified; Z03.818 Encounter for observation for suspected exposure to other biological agents ruled out
CPT/HCPCS: 80053; 81001; 83690; 83735; 84702; 85025; 87637; 96361; 96374; 96375; 99284; 99285; J1200; J1885; J2765

== ENCOUNTER 2025-06-03 15:36 | Emergency (ER) | payer OTHER, SELFPAY ==
--- NOTE | ~2025-06-03 | CT_ITS ---
CLINICAL HISTORY: headache --- Additional Notes or Special Instructions: preg pending CT head without contrast Comparison: None available Findings: No acute hemorrhage. No extra-axial fluid collection. No hydrocephalus, mass-effect or herniation. [place]-white differentiation is maintained. White matter is within normal limits for age. No acute orbital pathology. No acute soft tissue abnormality. No fracture. The visualized paranasal sinuses are predominantly clear. The mastoid air cells are clear. Impression: No acute findings. This document has been electronically signed by: Rayne Prieto MD on 06/03/2025 19:08:18
[2025-06-03 15:39] VITALS: BP 142/87; PULSE 74; RESP 16; TEMP 36.9; O2SAT 100; BMI 29.2
--- NOTE | 2025-06-03 15:40 | ED.GENADULT ---
HPI - General Adult General Chief complaint: Neck Pain/Injury Stated complaint: neck pain Time Seen by Provider: 06/03/25 20:30 History of Present Illness ED Provider: Gely Arzate NP HPI narrative: 30-year-old female with medical history significant for migraine headaches presents to the ED from home for evaluation reporting occipital pain discomfort. Patient reports that she was seen here over the weekend for similar complaints, at that time was vomiting. She reports that the pain improved when she was in the ED, but upon going home has not felt much improvement. Denies any diplopia, visual disturbances. No dizziness, lightheadedness. No episodes syncope. No head injury or trauma. No chest pain or pressure, shortness of breath, abdominal pain. No fever, chills. Related Data Previous Rx's ?Medication ?Instructions ?Recorded haloperidol 5 mg tablet 5 mg PO BEDTIME #15 tabs 08/03/21 lorazepam 1 mg tablet 1 mg PO BEDTIME #15 tabs 08/03/21 amoxicillin 875 mg-potassium 1 tab PO BID 7 days #14 tabs 08/12/23 clavulanate 125 mg tablet ofloxacin 0.3 % ear drops 10 drp otic (ear) left DAILY 7 08/12/23 days #10 mL ibuprofen 400 mg tablet 400 mg PO Q6H PRN pain #20 tabs 05/30/25 ondansetron 4 mg disintegrating 4 mg PO TID PRN nausea and 05/30/25 tablet vomiting 5 days #10 tabs prochlorperazine maleate 10 mg 10 mg PO BID PRN nausea and 06/03/25 tablet (Compazine) vomiting 7 days #14 tabs Allergies Allergy/AdvReac Type Severity Reaction Status Date / Time No Known Allergies (No Known Allergy Verified 06/03/25 15:40 Allergies*) Review of Systems Review of Systems: ROS is otherwise negative unless mentioned in HPI. COUNT INCLUDES THE [facility] Social History Social History Household Members: Spouse and Children Housing: House Do you presently have visiting nurse or other home services: No Alcohol intake: never Patient Tobacco Use Status: Never used Tobacco Advance Directives: No Advance Directives Information Provided: No service: No Sexual orientation: Straight/Heterosexual Physical Exam ED Exam Exam: Nursing notes and vital signs reviewed. Constitutional: Well-appearing, NAD. Alert. Oriented X3. Eyes: EOMI. ENT: Pharynx normal. Neck: Normal inspection. Neck supple. No C-spine tenderness. ROM intact. Respiratory: No respiratory distress. Skin: Skin warm and dry. Normal skin color. Extremities: No lower extremity edema. Neuro: Oriented X 3. No motor deficit. Vital Signs: Vital Signs - 24 hr 06/03/25 15:39 Temperature 98.4 F Pulse Rate 74 Respiratory Rate 16 Blood Pressure 142/87 H Pulse Oximetry 100 BMI result Body Mass Index 29.2 Course Course Course Narrative: This is an RME: Additional HPI, ROS, PE not included below will be deferred to primary provider. RME assessment and note performed by: Lily Kearney PA-C This is a [id number]-female who presents to the ER with complaints of neck pain and headache. Was seen here on 05/30 for similar symptoms. Continues to have neck pain. Plan: Labs, UA, CT head Medications Administered Discontinued Medications Generic Name Dose Route Start Last Admin Trade Name Freq PRN Reason Stop Dose Admin Ketorolac Tromethamine 30 mg 06/03/25 20:41 06/03/25 20:59 Ketorolac Tromethamine 30 Mg/Ml Vial IM 06/03/25 20:42 30 mg ONCE ONE Administration Medical Decision Making Medical Decision Making [facility] Narrative: 9:05 PM 06/03/2025 (Gely Arzate NP): I assessed this patient and their results pending chair. She presents back to the ED for progressive posterior head pain, reporting some nausea. She took ibuprofen at home as well as an antinausea medication that was prescribed to her and did not feel that was helpful. She would like an MRI of the head. I have reviewed her workup that was done by the triage provider. The lab work again is overall reassuring, and similar to previous. The CT of the head shows no acute intracranial pathology. She likely is experiencing migraines. There has been no head trauma. She has been in the ED waiting room now for 5-1/2 hours. We will administer a dose of Toradol IM, as well as oral Compazine discharged home with oral Compazine and neurology follow up. We discussed that if migraines persist she will likely need an MRI, which will be ordered by Neurology, and not performed in the ED. She expressed understanding with plan of care. Tolerating p.o.. We will proceed with discharge plan. Differential Diagnosis Differential Diagnoses: The differential diagnosis associated with the presentation includes Migraine headache, intracranial hemorrhage, concussion Admission/Observation Consideration of admission/observation: Escalation of care including admission/observation considered (Not indicated) Lab Data MDM Lab Attestation statement: I reviewed the patient's lab results. (Reassuring overall) 06/03/25 16:40 06/03/25 16:40 Labs: Lab Results 06/03/25 Range/Units 16:40 WBC 7.4 (4.8-10.8) X10*3/uL RBC 4.61 (4.20-5.50) X10*6/uL Hgb 14.0 (12.0-16.0) g/dl Hct 39.6 (37.0-47.0) % MCV 85.9 (80.0-98.0) fL MCH 30.4 (27.0-33.0) pg MCHC 35.4 H (31.0-35.0) g/dl RDW 12.4 (11.0-16.0) % Plt Count 372 (160-400) X10*3/uL MPV 10.0 (9.4-12.3) fL Immature Gran % (Auto) 0.1 (0.0-0.4) % Neut % (Auto) 67.0 (45-73) % Lymph % (Auto) 25.6 (20-40) % Cameron % (Auto) 5.0 (2-11) % Eos % (Auto) 1.5 (0-4) % Baso % (Auto) 0.8 (0-2) % Lymph # (Auto) 1.9 (1.2-4.9) X10*3/uL Cameron # (Auto) 0.4 (0.1-1.2) X10*3/uL Eos # (Auto) 0.1 (0.0-0.4) X10*3/uL Baso # (Auto) 0.1 (0.0-0.2) X10*3/uL Abs Immat Gran (auto) 0.01 (0.00-0.03) X10*3/uL Absolute Neuts (auto) 5.0 (2.0-8.3) x10*3/uL Absolute Nucleated RBC 0.000 (0.0-0.012) X10*3/uL Nucleated RBC % (auto) 0.0 (0.0-0.2) /100WBC Sodium 141 (135-145) mmol/L Potassium 3.6 (3.3-5.1) mmol/L Chloride 105 (96-108) mmol/L Carbon Dioxide 26 (22-29) mmol/L Anion Gap 14 (12-20) BUN 5 L (9-16) mg/dL Creatinine 0.77 (0.5-1.4) mg/dL Estim Creat Clear Calc 105.4 Estimated GFR > 60 Random Glucose 96 (60-115) mg/dL Calcium 9.9 (8.4-10.2) mg/dL Magnesium 2.1 (1.6-2.6) mg/dL Total Bilirubin 0.6 (0.0-1.0) mg/dL Direct Bilirubin 0.2 (0.0-0.5) mg/dL AST 60 H (5-31) U/L ALT 26 (0-31) U/L Alkaline Phosphatase 99 (39-117) U/L Total Protein 8.1 H (6.5-8.0) g/dL Albumin 5.1 H (3.5-5.0) g/dL Beta HCG, Quant < 2 mIU/mL Radiology Impression Discussion of test interpretation with radiology: I have reviewed the radiologist's reading. Radiologist Impression: CT Head Impression: No acute findings. Independent Historian None External Record Review External record reviewed: Other (Prior ER visit) Chronic Conditions Patient?s care impacted by: Other (Migraine headaches) Social Determinants Patient?s care significantly limited by Social Determinants of Health including: Problems related to primary support group Discharge Plan Discharge Clinical Impression: Headache Qualifiers: Headache type: unspecified Headache chronicity pattern: acute headache Intractability: intractable Qualified Code(s): R51.9 - Headache, unspecified Patient Disposition: Home, Self-Care Instructions: Acute Headache (DC) Additional Instructions: As we discussed, we have concern that you are experiencing migraine headaches. I have prescribed the Compazine to your pharmacy, which can be used for nausea. Please follow up with Neurology as listed. With any worsening complaints, return back to the ED for reassessment. Prescriptions: New prochlorperazine maleate [Compazine] 10 mg tablet 10 mg PO BID PRN (Reason: nausea and vomiting) 7 Days Qty: 14 0RF No Action haloperidol 5 mg Tablet 5 mg PO BEDTIME Qty: 15 0RF lorazepam 1 mg Tablet 1 mg PO BEDTIME Qty: 15 0RF amoxicillin-pot clavulanate 875-125 mg tablet 1 tab PO BID 7 Days Qty: 14 0RF ofloxacin 0.3 % drops 10 drp otic (ear) left DAILY 7 Days Qty: 10 0RF ibuprofen 400 mg tablet 400 mg PO Q6H PRN (Reason: pain) Qty: 20 0RF ondansetron 4 mg tablet,disintegrating 4 mg PO TID PRN (Reason: nausea and vomiting) 5 Days Qty: 10 0RF Referrals: [facility] [Provider Group] Print Language: [place]
[2025-06-03 16:46] LABS: MANUAL DIFF FLAG NO
[2025-06-03 16:48] LABS: Hematocrit 39.6 % (37.0-47.0); Hemoglobin 14.0 g/dl (12.0-16.0); Imm Gran Abs Auto 0.01 X10*3/uL (0.00-0.03); Imm Gran Pct Auto 0.1 % (0.0-0.4); Lymphocytes Absolute Auto 1.9 X10*3/uL (1.2-4.9); Mean Corpuscular HGB Conc 35.4 g/dl (31.0-35.0); Mean Corpuscular Hemoglobin 30.4 pg (27.0-33.0); Mean Corpuscular Volume 85.9 fL (80.0-98.0); NRBC Abs Auto 0.000 X10*3/uL (0.0-0.012); NRBC Pct Auto 0.0 /100WBC (0.0-0.2); Platelet Count 372 X10*3/uL (160-400); Red Blood Count 4.61 X10*6/uL (4.20-5.50); White Blood Count 7.4 X10*3/uL (4.8-10.8)
[2025-06-03 17:01] LABS: Alanine Aminotransferase 26 U/L (0-31); Albumin Level 5.1 g/dL (3.5-5.0); Alkaline Phosphatase 99 U/L (39-117); Anion Gap 14 (12-20); Aspartate Amino Transferase 60 U/L (5-31); Blood Urea Nitrogen 5 mg/dL (9-16); Calcium 9.9 mg/dL (8.4-10.2); Carbon Dioxide 26 mmol/L (22-29); Chloride 105 mmol/L (96-108); Creatinine Clr Calc Pharmacy 105.4; Estimated Glomerular Filt Rate > 60; Magnesium 2.1 mg/dL (1.6-2.6); Potassium 3.6 mmol/L (3.3-5.1); Sodium 141 mmol/L (135-145); Total Protein 8.1 g/dL (6.5-8.0)
[2025-06-03 21:18] VITALS: BP 147/79; PULSE 59; RESP 16; TEMP 36.1; O2SAT 99
--- OUTSIDE RECORDS SUMMARY | 2025-06-04 00:59 | XMS_ITS | Clinical Summary ---
Author Organization [facility] [address] [facility] Address [address] [place] [address] Phone Care Team Providers Care Direct Support Worker Name Role Phone Physician, Pcp Unknown Primary Care Provider Edith vailable Encounters Date Type Department Care Team Description 03/24/2025 Lab Requisition [facility] [address] [facility] [place] [address] Kamran Steel MD Acute vaginitis; [...] MOLECULAR DIAGNOSTICS METHOD 03/26/2025 10:10 AM EDT [facility] Chlamydia trachomatis PCR Negative Negative LAB MOLECULAR DIAGNOSTICS METHOD 03/26/2025 10:10 AM EDT [facility] Swab Cervix uteri structure / Unknown 03/24/2025 03/25/2025 9:55 AM EDT us Kamran Steel MD LAB MICROBIOLOGY - GENERAL ORD ERABLES Final Result [facility] [address] [place] [address], [place] [phone] from Last 3 Months Insurance [facility] Care Teams Direct Support Worker Relationship Specialty Start Date End Date Physician, Pcp Unknown PCP - General 05/16/24
--- OUTSIDE RECORDS SUMMARY | 2025-06-04 00:59 | XMS_ITS | Clinical Summary ---
Author Organization [facility] Address [address] [place] [address] Phone Care Team Providers Care Access Services Representative Name Role Phone Mouna Vizcarra PA-C Primary Care Provider Un available Medications ALPRAZolam (XANAX) 0.25 MG tablet 06/06/2021 Acti ve busPIRone (BUSPAR) 5 MG tablet 06/03/2021 Active sertraline (ZOLOFT) 25 MG tablet 06/03/2021 Active zolpidem (AMBIEN) 10 MG tablet 06/03/2021 Active Active Problems Problem Noted Date Diagnosed Date Cyst of kidney 08/01/2021 Proteinuria 06/14/2021 Resolved Problems Problem Noted Date Diagnosed Date Resolved Date Diarrhea 07/28/2021 07/28/2021 Overview (07/28/2021): Hx of this prior to , but worse now in . Takes otc stool softner, which helps. H/O: depression 07/28/2021 07/28/2021 Overview (07/28/2021): When under 18y /o, reports no longer an issue and jessica hx of ppd. Isai's thyroiditis 07/28/2021 02/0 08/2021 Overview (07/28/2021): Dx'd and tx'd by [facility]. Did see endo here at 3300 05/2018 and plan to f/u in 1yr. Self-injurious behavior 07/28/2021 02/0 08/2021 Hyperthyroidism 04/08/2021 06/14/2021 Personality disorder 10/25/2010 022 Immunizations Immunization Administration Dates Next Due DTaP 01/01/2015 Hep B, Adolescent or Pediatric 1993,1992,1993 Hepatitis A 01/16/2018 Influenza, Unspecified 03/24/2019 MMR 01/29/1997,01/31/1996 Tdap 02/10/2019 Typhoid, Unspecified 01/16/2018 Social History Tobacco Use Types Packs/Day Years Used Date Smoking Tobacco: Never Assessed Comments Unknown Sex and Gender Information Value Date Recorded Sex Assigned at Not on file Legal Sex Female 3:59 PM EDT Gender Identity Not on file Sexual Orientation Not on file Plan of Treatment Health Maintenance Due Date Last Done Comments Influenza Vaccine (#1) 2025 03/24/2019 Hepatitis B Vaccine Completed 1993, 1993, 1993 Pneumococcal Vaccine: Peds ( 0 to 5 Years) and At-Risk Patients (6 to 49 Years) Aged Out No longer eligi ble based on patient's age to complete this topic Care Teams Access Services Representative Relationship Specialty Start Date End Date Mouna Vizcarra PA-C [address] [place] [address] [address] [place] [address] PCP - General Physician [employer] 12/20/20
--- OUTSIDE RECORDS SUMMARY | 2025-06-04 00:59 | XMS_ITS | Encounter Summary ---
Author Organization [facility] Address [address] [place] [address] Care Team Providers Care Qc Lab Technician Name Role Phone Physician, Pcp Unknown Primary Care Provider Edith vailable Encounter Details Date Type Department Care Team (Latest Contact Info) Description 03/24/2025 Lab Requisition [facility] [address] [place] [address] Kamran Steel MD [address] [id number] Acute vaginitis; Encounter for screening for infections [...] LAB MOLECULAR DIAGNOSTICS METHOD 03/26/2025 10:10 AM [facility] Chlamydia trachomatis PCR Negative Negative LAB MOLECULAR DIAGNOSTICS METHOD 03/26/2025 10:10 AM [facility] Swab Cervix uteri structure / Unknown 03/24/2025 03/25/2025 9:55 AM EDT us Kamran Steel MD LAB MICROBIOLOGY - GENERAL ORD ERABLES Final Result [facility] [address] [place] [address], documented in this encounter Visit Diagnoses Diagnosis Acute vaginitis Unspecified vaginitis and vulvovaginitis Encounter for screening for infections with a predominantly sexual mode of transmission documented in this encounter Care Teams Qc Lab Technician Relationship Specialty Start Date End Date Physician, Pcp Unknown PCP - General 05/16/24 documented as of this encounter
== END 2025-06-03 21:18 | disposition home or self-care (01) ==
PROVIDERS: Physician Assistant Medical; Emergency Provider Emergency Medicine
DX: R51.9 Headache, unspecified (principal)
CPT/HCPCS: 36415; 70450; 80048; 80076; 83735; 84702; 85025; 96372; 99283; 99284; J1885

== ENCOUNTER → 2025-06-03 15:42 | Outpatient (BNV) | payer OTHER, SELFPAY | PROVIDERS: Visit Provider Radiology Diagnostic Radiology | DX: R51.9 Headache, unspecified (principal) | CPT/HCPCS: 70450 ==